=== PATIENT | female | born 1945 | race Caucasian/White ===

== ENCOUNTER → 2021-02-01 | Outpatient (CLI) | payer MEDICARE, BC | LOC: CSHULT 08:37 | PROVIDERS: ATTEND Internal Medicine Critical Care Medicine | DX: E88.01 Alpha-1-antitrypsin deficiency (principal); J44.9 Chronic obstructive pulmonary disease, unspecified | CPT/HCPCS: 76705 ==

== ENCOUNTER 2021-02-18 10:17 | Outpatient (CLI) | payer MEDICARE, BC ==
[2021-02-18 17:58] LABS: SARS-CoV-2 PCR by NAA Not Detected (NotDetected)
== END 2021-02-18 10:18 | disposition home or self-care (01) ==
LOC: CSHLAB 10:17
PROVIDERS: ATTEND Internal Medicine Critical Care Medicine
DX: Z20.822 Contact with and (suspected) exposure to COVID-19 (principal); E88.01 Alpha-1-antitrypsin deficiency
CPT/HCPCS: 87635; U0003; U0005

== ENCOUNTER 2021-02-23 10:04 | Outpatient (CLI) | payer MEDICARE, BC | END 2021-02-23 10:05 | disposition home or self-care (01) | LOC: CSHCP 10:04 | PROVIDERS: ATTEND Internal Medicine Critical Care Medicine | DX: E88.01 Alpha-1-antitrypsin deficiency (principal); R94.2 Abnormal results of pulmonary function studies | CPT/HCPCS: 94060; 94726; 94729; 94760 ==

== ENCOUNTER 2021-09-16 11:16 | Inpatient (IN) | payer MEDICARE, BC ==
[2021-09-16] MEDS ORDERED: traMADol HCl 50 MG TAB ONE (13:04)
[2021-09-16] MEDS ORDERED: Acetaminophen 500 MG TAB ONE (13:04)
[2021-09-16 13:19] LABS: #Eosinphils 0.2 10x3/uL (0.0-0.5); #Monocytes 1.1 10x3/uL (0.0-1.1); #Neutrophils 6.9 10x3/uL (1.5-8.4); %Basophils 0.4 % (0.0-2.0); %Lymphocytes 22.5 % (18.0-47.0); %Neutrophils 64.7 % (40.0-75.0); Hemoglobin 12.9 g/dL (12.0-15.5); Mean Corpuscular HGB CONC 32.9 g/dL (32.0-36.0); Mean Corpuscular Hemoglobin 31.7 pg (27.0-33.0); Mean Corpuscular Volume 96.3 fl (81.6-98.3); Mean Platelet Volume 9.6 fl (7.4-10.4); Platelet Count 222 10x3/uL (150-450); RBC Distribution Width 12.2 % (11.5-14.5); Red Blood Cell (RBC) Count 4.07 10x6/uL (3.90-5.03); White Blood Cell (WBC) Count 10.6 10x3/uL (3.5-10.5)
[2021-09-16 13:33] LABS: ALT (SGPT) 30 U/L (8-55); AST (SGOT) 22 U/L (5-34); Albumin 4.3 g/dL (3.4-4.8); Alkaline Phosphatase 69 U/L (40-110); Anion Gap 14 mmol/L (10-20); BUN (Urea Nitrogen) 16 mg/dL (9.8-20.1); Bilirubin, Total 0.8 mg/dL (0.2-1.2); Calc. Creatinine Clearance 0 mL/min (70-130); Calcium 9.1 mg/dL (7.8-10.44); Carbon Dioxide 22 mmol/L (23-31); Chloride 105 mmol/L (98-107); Globulin 2.7 g/dL (2.4-3.5); Glucose 108 mg/dL (83-110); Lipase 26 U/L (8-78); Potassium 3.7 mmol/L (3.5-5.1); Sodium 137 mmol/L (136-145)
[2021-09-16 14:52] LABS: Bilirubin Neg (Negative); Blood, Urine 25 (Negative); Clarity Clear (Clear); Glucose, Urine (Dipstick) Normal (Negative); Ketone, Urine Negative (Negative); Leukocyte Negative (Negative); Nitrite Negative (Negative); Protein, Urine (Dipstick) 30 mg/dl (Neg-Trace); Specific Gravity, Urine 1.015 (1.002-1.036); Urobilinogen Normal mg/dL (Less than 2)
[2021-09-16 15:07] LABS: Bacteria/HPF 3+ HPF (None Seen); RBC/HPF 0-3 HPF (0-3)
[2021-09-16] MEDS ORDERED: Ondansetron PF 4 MG/2 ML Vial IVP PRN (15:32)
[2021-09-16] MEDS ORDERED: Ondansetron ODT 4 MG TAB PO PRN (15:32)
[2021-09-16] MEDS ORDERED: Sodium Chloride 0.9% 1,000 ML IV SCH (15:45)
[2021-09-16] MEDS ORDERED: metroNIDAZOLE 500 MG in Premix Bag 1 BAG IVPB SCH (16:00)
[2021-09-16] MEDS ORDERED: metroNIDAZOLE 500 MG TAB ONE (16:01)
[2021-09-16 17:54] VITALS: BMI 19.3
[2021-09-16] MEDS: Acetaminophen 325 MG TAB PO PRN (18:15)
[2021-09-16] MEDS: traMADol HCl 50 MG TAB PO PRN (18:15)
[2021-09-16] MEDS ORDERED: Carvedilol 6.25 MG TAB PO SCH (21:00)
[2021-09-16] MEDS ORDERED: Famotidine/PF 20 mg/2ml Vial SLOW IVP PRN (21:00)
[2021-09-16] MEDS ORDERED: diphenhydrAMINE 25 MG CAP PO PRN (22:46)
[2021-09-17] MEDS ORDERED: Lorazepam 0.5 MG TAB PO SCH (01:00)
[2021-09-17 04:26] LABS: #Basophils 0.1 10x3/uL (0.0-0.2); #Eosinphils 0.4 10x3/uL (0.0-0.5); #Monocytes 1.1 10x3/uL (0.0-1.1); #Neutrophils 4.5 10x3/uL (1.5-8.4); %Basophils 0.7 % (0.0-2.0); %Eosinophils 4.6 % (0.0-6.0); %Lymphocytes 34.2 % (18.0-47.0); %Neutrophils 48.2 % (40.0-75.0); Hemoglobin 12.2 g/dL (12.0-15.5); Mean Corpuscular HGB CONC 32.6 g/dL (32.0-36.0); Mean Corpuscular Hemoglobin 31.9 pg (27.0-33.0); Mean Corpuscular Volume 97.7 fl (81.6-98.3); Mean Platelet Volume 9.7 fl (7.4-10.4); Platelet Count 235 10x3/uL (150-450); RBC Distribution Width 12.1 % (11.5-14.5); Red Blood Cell (RBC) Count 3.83 10x6/uL (3.90-5.03); White Blood Cell (WBC) Count 9.4 10x3/uL (3.5-10.5)
[2021-09-17 04:43] LABS: Anion Gap 13 mmol/L (10-20); BUN (Urea Nitrogen) 13 mg/dL (9.8-20.1); Calc. Creatinine Clearance 30 mL/min (70-130); Calcium 8.6 mg/dL (7.8-10.44); Carbon Dioxide 23 mmol/L (23-31); Chloride 108 mmol/L (98-107); Glucose 93 mg/dL (83-110); Potassium 3.9 mmol/L (3.5-5.1); Sodium 140 mmol/L (136-145)
[2021-09-17] MEDS: Famotidine 20 MG TAB PO SCH ×3 (06:07→09:06)
[2021-09-17] MEDS ORDERED: Enoxaparin Sodium 40 MG/0.4 ML SYRINGE SC SCH (09:00)
[2021-09-17] MEDS: traMADol HCl 50 MG TAB PO PRN (09:15)
[2021-09-17] MEDS: Acetaminophen 325 MG TAB PO PRN (09:16)
[2021-09-17] MEDS ORDERED: Lorazepam 0.5 MG TAB PO PRN (10:51)
[2021-09-17] MEDS ORDERED: Melatonin 3 MG TAB PO PRN (10:52)
[2021-09-17] MEDS: metroNIDAZOLE 500 MG TAB PO SCH ×2 (15:15→20:50)
[2021-09-17] MEDS ORDERED: Carvedilol 12.5 MG TAB PO SCH (17:00)
[2021-09-17] MEDS ORDERED: metroNIDAZOLE 500 MG in Premix Bag 1 BAG IVPB SCH (18:00)
[2021-09-18] MEDS: metroNIDAZOLE 500 MG TAB PO SCH ×3 (02:26→14:03)
[2021-09-18 05:22] LABS: #Basophils 0.1 10x3/uL (0.0-0.2); #Eosinphils 0.3 10x3/uL (0.0-0.5); #Neutrophils 4.4 10x3/uL (1.5-8.4); %Basophils 0.6 % (0.0-2.0); %Eosinophils 3.7 % (0.0-6.0); %Lymphocytes 26.1 % (18.0-47.0); %Monocytes 12.6 % (0.0-10.0); %Neutrophils 56.7 % (40.0-75.0); Hemoglobin 11.2 g/dL (12.0-15.5); Mean Corpuscular HGB CONC 32.4 g/dL (32.0-36.0); Mean Corpuscular Hemoglobin 31.3 pg (27.0-33.0); Mean Corpuscular Volume 96.6 fl (81.6-98.3); Mean Platelet Volume 9.7 fl (7.4-10.4); Platelet Count 218 10x3/uL (150-450); RBC Distribution Width 12.1 % (11.5-14.5); Red Blood Cell (RBC) Count 3.58 10x6/uL (3.90-5.03); White Blood Cell (WBC) Count 7.8 10x3/uL (3.5-10.5)
[2021-09-18 06:01] LABS: Anion Gap 13 mmol/L (10-20); BUN (Urea Nitrogen) 9 mg/dL (9.8-20.1); Calc. Creatinine Clearance 32 mL/min (70-130); Calcium 8.4 mg/dL (7.8-10.44); Carbon Dioxide 20 mmol/L (23-31); Chloride 108 mmol/L (98-107); Glucose 103 mg/dL (83-110); Potassium 3.7 mmol/L (3.5-5.1); Sodium 137 mmol/L (136-145)
[2021-09-18] MEDS: traMADol HCl 50 MG TAB PO PRN (08:32)
[2021-09-18] MEDS: Acetaminophen 325 MG TAB PO PRN ×2 (08:33→14:15)
[2021-09-18] MEDS: Famotidine 20 MG TAB PO SCH (08:53)
[2021-09-18] MEDS ORDERED: Carvedilol 12.5 MG TAB PO SCH (09:00)
[2021-09-18 16:55] VITALS: BP 140/50; TEMP 98.6
== END 2021-09-18 18:27 | disposition home or self-care (01) | DRG 392 ==
LOC: EEVIPCON 11:16 → CSHERS 11:16 → CSHTELE 17:26
PROVIDERS: ADMIT Internal Medicine; ATTEND Physician Assistant
DX: K57.32 Diverticulitis of large intestine without perforation or abscess without bleeding (principal); N18.4 Chronic kidney disease, stage 4 (severe); I25.10 Atherosclerotic heart disease of native coronary artery without angina pectoris; I12.9 Hypertensive chronic kidney disease with stage 1 through stage 4 chronic kidney disease, or unspecified chronic kidney disease; J44.9 Chronic obstructive pulmonary disease, unspecified; Z90.710 Acquired absence of both cervix and uterus; Z88.2 Allergy status to sulfonamides; Z88.5 Allergy status to narcotic agent; Z79.82 Long term (current) use of aspirin; Z79.899 Other long term (current) drug therapy; Z95.1 Presence of aortocoronary bypass graft; Z90.49 Acquired absence of other specified parts of digestive tract
CPT/HCPCS: 36415; 71045; 74176; 80048; 80053; 81003; 81015; 83605; 83690; 84484; 85025; 93005; 93010; J0744; J7050

== ENCOUNTER 2021-11-28 11:28 | Outpatient (CLI) | payer MEDICARE, BC ==
[2021-11-29 08:59] LABS: SARS-CoV-2 PCR by NAA Not Detected (NotDetected)
== END 2021-11-28 11:29 | disposition home or self-care (01) ==
LOC: CSHLAB 11:28
PROVIDERS: ATTEND Internal Medicine Critical Care Medicine
DX: Z20.822 Contact with and (suspected) exposure to COVID-19 (principal)
CPT/HCPCS: U0003; U0005

== ENCOUNTER 2021-12-01 10:20 | Outpatient (CLI) | payer MEDICARE, BC | END 2021-12-01 10:21 | disposition home or self-care (01) | LOC: CSHCP 10:20 | PROVIDERS: ATTEND Internal Medicine Critical Care Medicine | DX: J44.9 Chronic obstructive pulmonary disease, unspecified (principal) | CPT/HCPCS: 94060; 94726; 94729; 94760 ==

== ENCOUNTER 2022-06-16 12:01 | Outpatient (CLI) | payer MEDICARE, BC | END 2022-06-16 12:02 | disposition home or self-care (01) | LOC: CSHLAB 12:01 | PROVIDERS: ATTEND Internal Medicine Critical Care Medicine | DX: Z20.822 Contact with and (suspected) exposure to COVID-19 (principal) | CPT/HCPCS: 87811 ==

== ENCOUNTER 2022-06-20 11:12 | Outpatient (CLI) | payer MEDICARE, BC | END 2022-06-20 11:13 | disposition home or self-care (01) | LOC: CSHCP 11:12 | PROVIDERS: ATTEND Internal Medicine Critical Care Medicine | DX: J44.9 Chronic obstructive pulmonary disease, unspecified (principal) | CPT/HCPCS: 94060; 94726; 94729; 94760 ==

== ENCOUNTER 2022-12-29 08:43 | Outpatient (CLI) | payer MEDICARE, BC | END 2022-12-29 08:44 | disposition home or self-care (01) | LOC: CSHULT 08:43 | PROVIDERS: ATTEND Internal Medicine Nephrology | DX: N28.9 Disorder of kidney and ureter, unspecified (principal); K76.0 Fatty (change of) liver, not elsewhere classified; K82.8 Other specified diseases of gallbladder | CPT/HCPCS: 76700 ==

== ENCOUNTER 2023-03-05 10:20 | Outpatient (CLI) | payer MEDICARE, BC | END 2023-03-05 10:21 | disposition home or self-care (01) | LOC: CSHCP 10:20 | PROVIDERS: ATTEND Internal Medicine Critical Care Medicine | DX: J44.9 Chronic obstructive pulmonary disease, unspecified (principal) | CPT/HCPCS: 94060; 94726; 94729; 94760 ==

== ENCOUNTER 2023-07-27 08:14 | Outpatient (CLI) | payer MEDICARE, BC | END 2023-07-27 08:15 | disposition home or self-care (01) | LOC: CSHMAMMO 08:14 | PROVIDERS: ATTEND Internal Medicine | DX: Z12.31 Encounter for screening mammogram for malignant neoplasm of breast (principal) | CPT/HCPCS: 77063; 77067 ==

== ENCOUNTER 2024-05-21 10:52 | Outpatient (CLI) | payer MEDICARE, BC | END 2024-05-21 10:53 | disposition home or self-care (01) | LOC: CSHCP 10:52 | PROVIDERS: ATTEND Internal Medicine Critical Care Medicine | DX: J44.9 Chronic obstructive pulmonary disease, unspecified (principal) | CPT/HCPCS: 94060; 94726; 94729; 94760 ==